=== PATIENT | male | born 1965 | race Caucasian/White ===

== ENCOUNTER → 2020-09-23 09:37 | Outpatient (CLI) | payer BC, SELFPAY ==
--- NOTE | 2020-09-23 09:38 | BI_ITS ---
MAMMOGRAPHY - BILATERAL DIAGNOSTIC REASON FOR EXAM: Male, 55 years old. History of left breast lumps. PERTINENT HISTORY: Non-contributory. TECHNIQUE: Digital bilateral breast cole (3D mammographic acquisition) in the CC and MLO projections. 2-D mediolateral oblique (MLO) and craniocaudad (CC) views of both breasts were obtained. CAD: Full Field Digital Mammography with Computer Added Detection was performed. COMPARISON: None. Baseline examination. FINDINGS: Breast Composition: The breasts are almost entirely fatty. There are no dominant masses or suspicious calcifications. No other significant abnormalities are identified. BI/DIAG MAMM W/CAD, BILAT IMPRESSION: Negative diagnostic mammogram. With the patient''s history of palpable lumps in the left breast, correlation with ultrasound is recommended. ASSESSMENT CATEGORY: BIRADS Category 0: Incomplete. Need additional imaging evaluation. A letter regarding these results will be sent to the patient by the facility within 30 days. Approximately 10% of breast cancers are not detected by mammography. A normal mammogram should not delay biopsy of a clinically suspicious abnormality. Electronically Signed: Markell Hall MD at 8:46 EDT , Service support ,
--- NOTE | 2020-09-23 10:18 | US_ITS ---
STUDY: ULTRASOUND BREAST - LEFT REASON FOR EXAM: Male, 55 years old. Palpable lump left breast. TECHNIQUE: Axial and longitudinal images of the LEFT breast were performed with a high resolution ultrasound transducer. # OF IMAGES: 24 COMPARISON: Comparison is made with prior mammogram done earlier today. FINDINGS: LEFT Breast: There is a 9 mm x 11 mm x 18 mm slightly echogenic nodule at the 4 o''clock position of the breast along the inframammary fold. A similar appearing echogenic nodule measuring 9 mm x 13 mm x 6 mm is seen at the 7 o''clock position of the breast at 4 cm from the nipple. A larger echogenic nodule measuring 2 cm x 1.8 cm x 0.7 cm is seen at the 11 o''clock position of the breast at 4 cm from the nipple. These most likely represent small lipomas. US/Breast Limited Unilateral IMPRESSION: Findings suggestive of 3 lipomas in the left breast as described. ASSESSMENT CATEGORY: BIRADS Category 0: Incomplete. Need additional imaging evaluation. A letter regarding these results will be sent to the patient by the facility within 30 days. Electronically Signed: Markell Hall MD at 12:24 EDT , Service support ,
== END ==
PROVIDERS: PCP Family Medicine; Referring Provider Family Medicine; Visit Provider Family Medicine
DX: N63.22 Unspecified lump in the left breast, upper inner quadrant (principal)
CPT/HCPCS: 76642; 77062; 77066; G0279

== ENCOUNTER → 2022-01-31 | Outpatient (CLI) | payer BC, SELFPAY ==
--- NOTE | 2022-01-31 13:20 | LIP_PTH ---
PATIENT: ROB LAURENT LOC: [facility] U#:[id number] AGE/SX: 56/M ROOM: RE01/31/[address]: Dr. Willie Coronado MD : 1965 BED: DIS: 01/31/2022 SPEC #: [id number] RECD: 01/31/22 16:47 STATUS: EDDY REOlu #: [id number] REMBERTO: 01/31/22 13:[address]: Willie Coronado DEPT: SURGICAL PATHOLOGY RECD BY: Kathi Velez ENTERED: 02/01/22 08:43 SP TYPE: LIPOMA OTHR DR: Dr. Rissa Magdaleno MD Tissues: Soft tissues, NOS Procedures: Surgery Specimen Level III HEADER OPERATION: Excision of back lipoma PRE-OP DIAGNOSIS: Subcutaneous mass TISSUE SUBMITTED: Back lipoma MICROSCOPIC DIAGNOSIS Back lipoma, excision: Mature adipose tissue consistent with lipoma. SJ:nicanor 02/02/2022 MICROSCOPIC DESCRIPTION Slides are reviewed. GROSS DESCRIPTION Received in fixative is one container labeled with the patient's name and designated back lipoma. The specimen consists of multiple pieces of lobulated, yellow adipose tissue that in aggregate measure 6 x 5 x 2.5 cm. Sections reveal yellow adipose cut surfaces without area of hemorrhage, necrosis or cystic degeneration. Automation Machine Operator sections are submitted in two cassettes. / SJ:rg 02/01/2022 TC:1 CPT: 84641
== END | disposition home or self-care (01) ==
LOC: LABSPEC 16:59
PROVIDERS: PCP Family Medicine; Referring Provider Surgery; Visit Provider Surgery
DX: L98.9 Disorder of the skin and subcutaneous tissue, unspecified (principal)
CPT/HCPCS: 88304